=== PATIENT | female | born 1990 | race Caucasian/White ===

== ENCOUNTER 2020-04-09 11:50 | Inpatient (IN) | payer OTHER, SELFPAY ==
[2020-04-09] VITALS (97 sets, daily range): BP systolic 94–127; BP diastolic 36–84; PULSE 25–120; RESP 18; TEMP 36.6–37.2; O2SAT 79–100; BMI 25.9
[2020-04-09] MEDS: LACTATED RINGERS 1,000 ML 999 ML IV CONT ×2 (12:35→13:08)
[2020-04-09 12:51] LABS: Basophils Absolute Auto 0.1 K/mm3 (0.0-0.1); Basophils Percent Auto 0.4 % (0.2-1.2); Eosinophils Absolute Auto 0.3 K/mm3 (0-0.3); Eosinophils Percent Auto 2.1 % (0-4.4); Hemoglobin 11.1 g/dL (12.0-15.0); Immature Granulocyte Absolute 0.08 K/mm3 (0.00-0.031); Immature Granulocyte Percent A 0.5 % (0-0.5); Lymphocytes Absolute Auto 1.93 K/mm3 (0.9-3.2); Mean Corpuscular HGB Conc 34.7 g/dl (32-36); Mean Corpuscular Hemoglobin 35.4 pg (26-34); Mean Corpuscular Volume 101.9 fl (80-100); Mean Platelet Volume 10.4 fl (7.4-10.4); Monocytes Percent Auto 6.6 % (2.6-8.5); Neutrophils Absolute Auto 11.5 K/mm3 (1.3-6.7); Neutrophils Percent Auto 77.4 % (45.5-73.1); Platelet Count Result 371 k/mm3 (150-375); Red Blood Count 3.14 M/mm3 (4.2-5.4); Red Cell Distribution Width 12.3 % (11.5-14.5); White Blood Count 14.8 K/mm3 (4.5-10.0)
--- NOTE | 2020-04-09 12:53 | LDADM ---
This patient, Orin Hurst, was admitted to Labor/Delivery/Recovery 106 on 04/09/20 at 11:50. Plans for labor, pain management and were discussed with patient. Patient/family oriented to hospital policies and general routines including ID bracelet, bed and alarms, visiting hours, pain management, procedures, bathroom and other care routines, personal items, smoking policy, room service/diet and guest tray routines, security routines, and visiting hours. Patient/Family are encouraged to report perceived risks to care and to ask questions if they do not understand what they are told or what they should do. See OBIX for further documentation.
--- NOTE | 2020-04-09 14:19 | WPDOBADMIT ---
Obstetrics - Admit Note Admission Note: record reviewed. Additions to the history and/or subsequent changes in the physical findings follow. 29 y/o at 39 weeks here with contractions. GBS neg. uncomplicated. Now comfortable with epidural. AVSS NST reactive TOCO: contractions every 4-6 min ABD soft, nontender, gravid, vertex EXT nontender Cervix 5-6/80/-2. AROM with clear fluid. A: IUP at term with labor. P: Anticipate .
[2020-04-09] MEDS: LACTATED RINGERS 1,000 ML 125 ML IV CONT (15:38)
[2020-04-09] MEDS: OXYTOCIN 30 UNITS/NS 500 ML 30 UNITS/500 ML BAG 999 UNITS IV CONT (17:59)
--- NOTE | 2020-04-09 18:17 | P.PCNOB_ITS ---
OB - Delivery Note Procedure Delivery date: 04/09/20 Procedure: Delivery monitor: external FHT and external uterine Route of delivery: Laceration description: Perineal - 2nd Degree Delivery repair: vicryl (3-0) Specimen: Yes (cord blood) Estimated blood loss (mL): 65 Anesthesia type: Epidural Disposition: PACU Complications: None Narrative: 29 y/o at 39 weeks gestation who presented to the hospital with complaint of contractions. Labor was diagnosed. Amniotomy was performed with return of clear fluid. She received an epidural for pain control. Her labor progressed and her cervix dilated completely. She pushed with good effort and delivered the infant's head to the perineum, followed by the body. The nose and mouth were bulb suctioned. After a delay, the cord was clamped and cut. The was handed off the field. Cord blood was collected. The placenta delivered spontaneously and was grossly normal in appearance. The usual 3 vessel cord was noted. A second degree midline perineal laceration was sustained. This was reapproximated using 3 0 Vicryl in the usual layered fashion. A right-sided periurethral laceration was reapproximated with two interrupted sutures of 3-0 Vicryl. Excellent hemostasis resulted as did excellent reapproximation of the normal anatomy. Needle and instrument counts were correct. The patient was taken to recovery room in stable condition. The infant went to the nursery in stable condition. I was present and scrubbed for the entire delivery. [place] Baby Date of : 04/09/20 Time of : 17:58 Weeks of gestation at delivery: 39 Infant gender: Female Weight (pounds): 6 Weight (ounces): 9 presentation: vertex position: Right Occiput Anterior Placenta delivery description: Spontaneous and Normal Configuration cord vessel description: 3 Vessels score one minute: 9 score five minutes: 9
--- NOTE | 2020-04-09 18:20 | PM.OBDSVD ---
DS: Admitting Diagnosis Admitting Diagnosis Admitting Diagnosis: IUP at 39 weeks Labor DS: Discharge Diagnosis Discharge Diagnosis (1) (normal spontaneous vaginal delivery): Code(s): O80 - Encounter for full-term uncomplicated delivery Status: Acute OB - DS: Summary OB Procedures : None OB Procedures Intrapartum: Spontaneous Vag Delivery OB Procedures: : None Time Spent with Patient Time attestation: Total time spent providing and/or coordinating discharge services: DS: Data Data Completed and Pending Labs on day of discharge: Labs from last 24 hours 04/09/20 04/09/20 04/09/20 12:44 12:44 12:44 WBC 14.8 H RBC 3.14 L Hgb 11.1 L Hct 32.0 L MCV 101.9 H MCH 35.4 H MCHC 34.7 RDW 12.3 Plt Count 371 MPV 10.4 Immature Gran % (Auto) 0.5 Neut % (Auto) 77.4 H Lymph % (Auto) 13.0 L [place] % (Auto) 6.6 Eos % (Auto) 2.1 Baso % (Auto) 0.4 Lymph # (Auto) 1.93 [place] # (Auto) 1.0 H Eos # (Auto) 0.3 Baso # (Auto) 0.1 Abs Immat Gran (auto) 0.08 H Absolute Neuts (auto) 11.5 H Absolute Nucleated RBC 0.0 Nucleated RBC % 0.0 RPR Pending Blood Type A Positive Antibody Screen Negative Discharge Plan Discharge Attending physician on discharge: Jose Manuel Cervantes Discharging Clinician: Jose Manuel Cervantes Patient Disposition: Home, Self-Care Activity: pelvic rest Diet: regular Discharge Instructions: Call or return if temperature above 100.4? F, increased abdominal pain, increased vaginal bleeding or any new problems. Stand Alone Forms: General Discharge Information Follow-up/Referrals: Rip Dickey MD [Physician] - (6 weeks) Discharge Medications: New ibuprofen 600 mg tablet 600 mg PO Q6H PRN (Reason: cramps) Qty: 30 RF: 0 No Action PNV cmb#95-ferrous fumarate-FA [] 28 mg iron- 800 mcg Tablet 1 tablet PO DAILY RF: 0 Date of admission: 04/09/20 11:50 Primary Care Provider: KendalErnie Admitting Provider: Rip Dickey Attending physician on admission: Rip Dickey
[2020-04-09] MEDS: OXYTOCIN 30 UNITS/NS 500 ML 30 UNITS/500 ML BAG 125 UNITS IV CONT (18:34)
[2020-04-09] MEDS: BENZOCAINE 20% AER SPR (*SP) 56 GM CAN 1 SPRAY TOPICAL (19:51)
[2020-04-09] MEDS: WITCH HAZEL 40 PADS 1 PAD TOPICAL (19:51)
[2020-04-09] MEDS: IBUPROFEN 600 MG TABLET PO (19:52)
--- NOTE | 2020-04-09 21:28 | OBPPTRN ---
Addendum entered by Patricia Clark RN 04/10/20 04:25: patient was admitted to the floor at 20:10 on 04/09/20 Original Note: Patient transferred to post room #281 via wheelchair with baby in bassinet. Support person present. Oriented to unit, room, information board, rooming in, admission packet and security measures. Patient verbalizes understanding.
[2020-04-10] MEDS: IBUPROFEN 600 MG TABLET PO ×2 (03:55→16:03)
[2020-04-10 04:57] LABS: Hematocrit 31.7 % (37.0-47.0); Hemoglobin 10.8 g/dL (12.0-15.0)
--- NOTE | 2020-04-10 07:19 | PM.OBPNVD ---
OB - PN: Subj Subjective Date/time seen: 04/10/20 07:19 Narrative: Pain OK. Considering going home. Says she had depression after last delivery, but feels fine today and strongly prefers not to treat at this time. OB - PN: Obj Data Labs CBC & Chem 7: 04/10/20 04:05 Labs: Laboratory Results - last 24 hr 04/09/20 04/09/20 04/10/20 12:44 12:44 04:05 WBC 14.8 H RBC 3.14 L Hgb 11.1 L 10.8 L Hct 32.0 L 31.7 L MCV 101.9 H MCH 35.4 H MCHC 34.7 RDW 12.3 Plt Count 371 MPV 10.4 Immature Gran % (Auto) 0.5 Neut % (Auto) 77.4 H Lymph % (Auto) 13.0 L [place] % (Auto) 6.6 Eos % (Auto) 2.1 Baso % (Auto) 0.4 Lymph # (Auto) 1.93 [place] # (Auto) 1.0 H Eos # (Auto) 0.3 Baso # (Auto) 0.1 Abs Immat Gran (auto) 0.08 H Absolute Neuts (auto) 11.5 H Absolute Nucleated RBC 0.0 Nucleated RBC % 0.0 Blood Type A Positive Antibody Screen Negative OB - PN A/P Plan Comments: A: PPD#1, doing well. P: Routine care. Home later today to f/u 6 weeks. Exam Psych: Other: AVSS ABD soft, nontender, fundus firm EXT nontender
[2020-04-10] MEDS: MULTIVIT/MIN/PREN/FOL AC/IRON TABLET 1 TAB PO (08:07)
[2020-04-10 08:10] VITALS: BP 100/67; PULSE 56; RESP 18; TEMP 36.6
--- NOTE | 2020-04-10 10:03 | WPDANLDPN2 ---
Anes-Prog Note L&D Date/Time: 04/10/20 10:03 Comfortable throughout: labor and delivery Neuraxial method: epidural Epidural/Spinal procedure site: clean & non-tender Neuro status: Neuro function grossly intact. Cardiovascular status: normal Respiratory status: normal Airway patency: baseline Mental status: baseline Post-Op hydration status: normal Vital Signs: Last Vital Signs Temp 36.6 C 04/10/20 08:10 Pulse 56 L 04/10/20 08:10 Resp 18 04/10/20 08:10 BP 100/67 04/10/20 08:10 Pulse Ox 97 04/09/20 21:00 I/O: Intake & Output 04/09/20 04/10/20 04/10/20 23:59 07:59 15:59 Intake Total 700 Output Total 65 Balance 635 Post-procedural complaints: none Patient feedback: Patient satisfied with anesthetic care.
--- NOTE | 2020-04-10 16:00 | PC.NURSE ---
Patient was given the opportunity to view the discharge video Mother & Baby Care, The First Two Weeks and to ask questions. Patient declined viewing the video and has been given the mother/baby guide for home reference.
[2020-04-10 21:46] VITALS: BP 98/58; PULSE 64; RESP 14; TEMP 36.7; O2SAT 100
[2020-04-11] MEDS: IBUPROFEN 600 MG TABLET PO ×2 (00:03→10:14)
--- NOTE | 2020-04-11 06:59 | PM.OBPNVD ---
OB - PN: Subj Subjective Date/time seen: 04/11/20 06:59 Patient comments: no complaints and pain well controlled baby status: doing well OB - PN: Obj Data Labs CBC & Chem 7: 04/10/20 04:05 OB - PN A/P Plan day: 2 Plan: routine care, discharge home and follow up 6 weeks Time Spent With Patient Time: Total time spent is greater than 50% in coordination of care (as documented) at patient's floor/unit and/or counseling patient: Time with patient: less than 15 minutes Review of Systems Review of Systems: All systems reviewed & are unremarkable except as noted in HPI and below Exam Const: General: no acute distress Eyes: General: appearance normal, both eyes and all related structures Neck: Neck: supple and no JVD Thyroid: thyroid normal Resp: Effort & Inspection: normal respiratory effort Auscultation: clear to auscultation bilaterally Cardio: Rate: regular rate Rhythm: regular rhythm GI: Inspection: non-distended GI Palp: Yes Soft to palpation, No Tenderness to palpation present (GI) and No Guarding due to palpation present (GI) Auscultation: normal bowel sounds : General: Yes bladder normal to palpation External Female Exam: normal external appearance Speculum Exam - Vagina: normal vaginal discharge and No vaginal bleeding Speculum Exam - Cervix: nontender Bimanual exam- vagina & uterus: bladder normal to palpation and No Cervical tenderness present OB/external & speculum: No vaginal bleeding Skin: General skin exam: no rashes or lesions noted Extrem: General: normal to inspection and no edema Psych: Mental Status: mental status grossly normal Affect: normal affect
[2020-04-11 08:48] VITALS: BP 94/60; PULSE 88; RESP 16; TEMP 36.5; O2SAT 100
[2020-04-11 10:02] LABS: Rapid Plasma Reagin Non-Reactive (NonReactive)
[2020-04-11] MEDS: MULTIVIT/MIN/PREN/FOL AC/IRON TABLET 1 TAB PO (10:14)
[2020-04-11] MEDS: DOCUSATE SODIUM 100 MG CAPSULE PO (10:16)
--- NOTE | 2020-04-11 16:17 | PC.NURSE ---
1020 Discharge papers for mother and baby reviewed with mother. Papers were signed in understanding.
--- NOTE | 2020-04-11 18:44 | PC.NURSE ---
1020 nurse was reviewing pt's discharge papers with her; when pt was asked about hx of PPD, she became tearful and acknowledged yes she did. she reports she and Dr. Cervantes have discussed this in the office and nurse encouraged her to call if she feels like she is struggling with PP emotions again this time; she and FOB agreed, and FOB stated he did not want her to have the same issues this time. FOB seems to be very helpful and supportive.
[2020-04-12 10:50] VITALS: BP 100/52; PULSE 75; RESP 16; TEMP 37.1; O2SAT 100
== END 2020-04-11 10:47 | disposition home or self-care (01) | DRG 560 ==
LOC: ANHLDR 18:21 → ANHOB2 20:22
PROVIDERS: Admitting Provider Obstetrics & Gynecology; PCP Family Medicine; Visit Provider Obstetrics & Gynecology
DX: O76 Abnormality in fetal heart rate and rhythm complicating labor and delivery (principal); O71.82 Other specified trauma to perineum and vulva; Z3A.39 39 weeks gestation of pregnancy; Z37.0 Single live birth
CPT/HCPCS: 36415; 85014; 85018; 85025; 86592; 86850; 86900; 86901; A9270; J2590; J2795; J7120

== ENCOUNTER 2020-05-25 02:28 | Outpatient (CLI) | payer OTHER, SELFPAY ==
[2020-05-25 18:39] LABS: SARS-CoV-2 RNA PCR Negative
== END 2020-05-25 02:29 | disposition home or self-care (01) ==
LOC: ANHCOVIDDT 02:29
PROVIDERS: PCP Family Medicine; Visit Provider Obstetrics & Gynecology
DX: Z01.812 Encounter for preprocedural laboratory examination (principal); Z20.828 Contact with and (suspected) exposure to other viral communicable diseases
CPT/HCPCS: 87635; C9803; U0003

== ENCOUNTER 2020-05-27 00:29 | Day surgery (SDC) | payer OTHER, SELFPAY ==
[2020-05-20 17:38] VITALS: BMI 20.9
--- NOTE | 2020-05-25 09:17 | PM.IMHP ---
H&P: HPI History of Present Illness Date/Time: 05/25/20 09:17 Chief complaint: Desires Sterilization Narrative: Orin Hurst is a 29 year old female who is admitted for laparoscopic tubal ligation. She desires permanent irreversible sterilization. She signed her ID PA form on 03/17/2020. Alternatives including but not exclusive of pills patches IUDs implants injections were all reviewed. She understands this is a permanent irreversible procedure with a failure rate of 12/999. Risks and benefits of the procedure reviewed including but not exclusive of , aspiration pneumonia, bleeding, transfusion, perforation injury to bowel, bladder, ureters, or other internal organs with need for open laparotomy. She voiced good understanding. She had all questions answered. She asked to proceed Review of Systems Review of Systems: All systems reviewed & are unremarkable except as noted in HPI and below PMFSH Family History Family History Other No pertinent family history Social History Social History Years smoked: 13 Smoking status: Current every day smoker Tobacco type: cigarettes Substance use: never Gender identity (if verbalized by the patient): Female Spiritual care concerns: No Meds Home Medications and Allergies Home Medications Medication Instructions Recorded Confirmed Type PNV cmb#95-ferrous fumarate-FA 1 tablet PO DAILY 03/24/20 05/20/20 History [] ibuprofen 600 mg PO Q6H PRN #30 tablet 04/09/20 05/20/20 Rx Allergies Allergy/AdvReac Type Severity Reaction Status Date / Time No Known Allergies Allergy Verified 05/20/20 17:45 Exam Const: General: no acute distress Eyes: General: appearance normal, both eyes and all related structures Neck: Neck: supple and no JVD Thyroid: thyroid normal Resp: Effort & Inspection: normal respiratory effort Auscultation: clear to auscultation bilaterally Cardio: Rate: regular rate Rhythm: regular rhythm GI: Inspection: non-distended GI Palp: Yes Soft to palpation, No Tenderness to palpation present (GI) and No Guarding due to palpation present (GI) Auscultation: normal bowel sounds : General: Yes bladder normal to palpation External Female Exam: normal external appearance Speculum Exam - Vagina: normal vaginal discharge and No vaginal bleeding Speculum Exam - Cervix: nontender Bimanual exam- vagina & uterus: bladder normal to palpation and No Cervical tenderness present OB/external & speculum: No vaginal bleeding Skin: General skin exam: no rashes or lesions noted Extrem: General: normal to inspection and no edema Psych: Mental Status: mental status grossly normal Affect: normal affect Assessment and Plan Additional Plan impression: Desires permanent sterilization Plan: Laparoscopic tubal ligation via silastic bands
[2020-05-27] VITALS (9 sets, daily range): BP systolic 101–122; BP diastolic 68–94; PULSE 66–108; RESP 15–20; TEMP 36.2–36.6; O2SAT 95–100
--- NOTE | 2020-05-27 06:29 | WPDHPUPDATE1 ---
History and Physical Update Update Date/Time: 05/27/20 06:29 History and Physical has been reviewed, including an updated exam of the patient. There are NO changes in the patient's condition. Risks, benefits, and alternatives have been discussed and questions answered. Patient agrees to proceed with procedure.
[2020-05-27] MEDS: LACTATED RINGERS 1,000 ML 30 ML IV CONT ×2 (08:09→09:39)
[2020-05-27] MEDS: ACETAMINOPHEN 500 MG TABLET 1000 MG PO (08:10)
[2020-05-27] MEDS: KETOROLAC 15 MG/ML VIAL (*BKC) IV PUSH (08:11)
--- NOTE | 2020-05-27 08:39 | WPDANESEPPF ---
Anes - Initial Pre Proc Eval Procedure: Operation Date: 05/27/20 09:30 Proposed Procedures p Laparoscopic Bilateral Tubal Ligation With Fallopian Rings - Rip Dickey MD Date/Time: 05/27/20 08:39 Surgeon: Rip Dickey MD Pre Op Diagnosis: Desires Sterilization Patient Data Age: 29 Gender: F Height: 5 ft 6 in Weight: 60.2 kg Last Vital Signs Temp 97.3 F L 05/27/20 08:13 Pulse 86 05/27/20 08:13 Resp 16 05/27/20 08:13 BP 105/85 05/27/20 08:13 Pulse Ox 95 05/27/20 08:13 Allergies Allergy/AdvReac Type Severity Reaction Status Date / Time No Known Allergies Allergy Verified 05/27/20 07:52 Home Medications Medication Instructions Recorded Confirmed Type PNV cmb#95-ferrous fumarate-FA 1 tablet PO DAILY 03/24/20 05/27/20 History [] ibuprofen 600 mg PO Q6H PRN #30 tablet 04/09/20 05/27/20 Rx hydrocodone-acetaminophen [[place]] 1 tablet PO Q4H PRN #30 tablet 05/27/20 Rx Patient hx anesthesia problems: none Family hx anesthesia problems: none PMFSH Past Medical History Medical History (Updated 05/27/20 @ 08:39 by Jake Neely MD) Healthy adult Family History Family History Other No pertinent family history Social History Social History Years smoked: 13 Smoking status: Current every day smoker Tobacco type: cigarettes Additional smoking assessment comments: Pt has cut down to 5-7 cigs per day with the Substance use: never Gender identity (if verbalized by the patient): Female Spiritual care concerns: No Anes - Eval Final PreProcedure Day of Procedure 05/27/20 08:39 Patient weight: normal Heart: regular rate and rhythm Lungs: clear to auscultation Airway: Mallampati scale class II Neurological: alert and oriented Last oral intake: >/= 8 hours ASA classification: II Emergent: no Anesthetic plan: proceed Anesthesia type and monitoring: general ETT and standard monitoring Informed Consent: The patient's anesthetic plan and its attendant risks and benefits were discussed with the patient/family/POA. Questions were solicited and answers provided to the satisfaction of the patient/family/POA.
--- NOTE | 2020-05-27 09:32 | SUR.OPER ---
Ebl=5ml
--- NOTE | 2020-05-27 09:38 | PM.PROC ---
Procedure Note - Detailed Date of procedure: 05/27/20 Pre-op diagnosis: Desires Sterilization Surgeon: Rip Dickey MD Postop diagnosis: Desires sterilization Procedure: Laparoscopic bilateral tubal ligation via silastic bands Anesthesia: General endotracheal EBL: 5cc Complications: None Findings: Normal-appearing ovaries tubes and uterus Description of procedure: The patient was prepped draped in the normal sterile fashion and placed in the dorsal lithotomy position. Under excellent general trach anesthesia weighted speculum placed in posterior fornix of vagina. Anterior lip of the cervix was grasped with a single-tooth tenaculum. The instruments were attached to be used later for uterine manipulation. Bladder was emptied of clear urine. The weighted speculum was removed. Gloves were changed. An infraumbilical incision was made. Veress needle was passed in the abdomen. The abdomen was filled with CO2 gas [id number]. The 5mm trocar was advanced in the abdomen under direct visualization assuring no injury. The patient was placed in Trendelenburg a suprapubic incision made. The 5mm trocar was advanced into the abdomen under direct visualization assuring no injury. The right fallopian tube was grasped and a good knuckle of tube formed. Photo documentation was undertaken excellent blanching was seen. The left fallopian tube was grasped at its midportion a good knuckle of tube formed. Excellent blanching was seen. The remainder of the pelvis appeared within normal limits. The instruments removed. The gas removed from the abdomen. The trocars removed from the abdomen and the incisions closed with 4 O Monocryl glue. The patient was awakened. All sponge, needle, instrument counts were correct. There were no immediate complications
[2020-05-27] MEDS: ONDANSETRON INJ 4 MG/2 ML VIAL IV PUSH (10:20)
== END 2020-05-27 11:40 | disposition home or self-care (01) ==
PROVIDERS: PCP Family Medicine; Visit Provider Obstetrics & Gynecology
PROC: (CPT 58671; principal; 2020-05-27 09:30)
DX: Z30.2 Encounter for sterilization (principal); F17.210 Nicotine dependence, cigarettes, uncomplicated
CPT/HCPCS: 58671; A4264; A9270; J0330; J1100; J1885; J2250; J2405; J2704; J3010; J7120